=== PATIENT | male | born 1955 | race African-American/Black ===

== ENCOUNTER 2017-01-02 05:55 | Inpatient (IN) ==
[2016-12-28 11:20] LABS: Basophils % 0.4 % (0.0-0.8); Eosinophils # 0.1 10*3/uL (0.0-0.87); Eosinophils % 2.8 % (0.00-10.9); Hematocrit 34.6 VOL% (42.0-52.0); Lymphocytes # 1.3 10*3/uL (1.4-4.0); Lymphocytes % 25.7 % (21.2-54.2); Mean Corpuscular HGB Conc 34.7 GM/DL (32-36); Mean Corpuscular Hemoglobin 31 PG (27-34); Mean Corpuscular Volume 89.2 FL (87-102); Monocytes # 0.4 10*3/uL (0.11-0.8); Monocytes % 8.3 % (1.7-12.7); Neutrophils # 3.2 10*3/uL (1.4-7.4); Neutrophils % 62.8 % (38.7-73.9); Platelet Count 187 T/CUMM (130-400); Red Blood Count 3.88 MC/CUMM (3.8-5.5); Red Cell Distribution Width 14.3 % (9.3-17.3); White Blood Count 5.1 T/CUMM (4-12)
[2016-12-28 11:34] LABS: Apearance,Urine CLEAR (Clear); Bilirubin,Urine Negative (Negative); Blood, Urine Negative (Negative); Glucose,Urine (UA) Negative (Negative); Ketones,Urine Negative (Negative); Mucus,Urine Occasional /LPF (Occasional); Nitrite,Urine Negative (Negative); Protein,Urine Negative; RBC,Urine 1 /HPF (0-4); Squamous Epithelial Cell,Urine Occasional /HPF (0-10); Urine Color Yellow (Yellow); Urine Specific Gravity 1.017 (1.001-1.035); Urine Urobilinogen < 2.0 EU/DL (0.2-1.0); WBC,Urine 1 /HPF (0-6)
--- NOTE | 2016-12-28 11:52 | EKG Report ---
Stationary ECG Study [facility] Test Date: 12/28/2016 11:51:05 AM Pat Name: PRISCILLA HARDIN Department: Room: Gender: M Call Center Trainer: BRANDEE EID [birth year] : 1955 Requested by: Moreno Eid Order Number: [id number] Reading MD: JERMAINE RANDLE Intervals [place] Rate: 56 P: 62 [place]: 204 QRS: 44 QRSD: 101 T: -15 QT: 401 QTc: 392 Interpretive Statements SINUS RHYTHM VOLTAGE CRITERIA FOR LVH NONSPECIFIC T-WAVE ABNORMALITY Electronically Signed On 12-28-16 22:09:44 CDT by JERMAINE RANDLE [email or web address]
[2016-12-28 11:58] LABS: Calcium 9.2 MG/DL (8.5-10.1); Osmolality,Calculated 288.3 MOS/KG (273-304); Potassium 3.9 MMOL/L (3.5-5.1)
[~2017-01-02 05:55] MED LIST: ALVIMOPAN 12 MG CAPSULE ONE; FAMOTIDINE 20 MG TABLET PO ONE; LORazepam 1 MG TABLET PO ONE; SODIUM CHLORIDE 0.9% 100 ML IV ONE; SODIUM PHOSPHATE ENEMA 133 ML BOTTLE RECTAL ONE; cefTRIAXone 1,000 MG VIAL ONE
[2017-01-02] MEDS ORDERED: ALVIMOPAN 12 MG CAPSULE PO ONE (06:00)
[2017-01-02] MEDS ORDERED: SODIUM PHOSPHATE ENEMA 133 ML BOTTLE RECTAL ONE (06:00)
[2017-01-02] MEDS ORDERED: FAMOTIDINE 20 MG TABLET ONE (06:38)
[2017-01-02] MEDS ORDERED: LORazepam 1 MG TABLET ONE (06:38)
[2017-01-02] MEDS ORDERED: DEXAMETHASONE 10 MG/1 ML VIAL ONE (07:15)
[2017-01-02] MEDS ORDERED: LIDOCAINE 2% 5 ML VIAL ONE (07:15)
[2017-01-02] MEDS ORDERED: PROPOFOL 200 MG/20 ML VIAL IV ONE (07:15)
[2017-01-02] MEDS ORDERED: PHENYLEPHRINE 1 MG/10 ML SYRINGE IV ONE (07:15)
[2017-01-02] MEDS ORDERED: GLYCOPYRROLATE 0.4 MG/2 ML VIAL ONE (07:15)
[2017-01-02] MEDS ORDERED: ROCURONIUM 100 MG/10 ML VIAL IV ONE (07:15)
[2017-01-02] MEDS ORDERED: ONDANSETRON 4 MG/2 ML VIAL ONE ×2 (07:15→12:24)
[2017-01-02] MEDS ORDERED: LACTATED RINGERS 1,000 ML IV SCH (07:30)
[2017-01-02 08:18] LABS: Apearance,Urine CLEAR (Clear); Bilirubin,Urine Negative (Negative); Blood, Urine Negative (Negative); Glucose,Urine (UA) Negative (Negative); Hyaline Casts,Urine 1 /LPF (0-3); Ketones,Urine Negative (Negative); Mucus,Urine Occasional /LPF (Occasional); Nitrite,Urine Negative (Negative); Protein,Urine Negative; RBC,Urine 2 /HPF (0-4); Squamous Epithelial Cell,Urine Occasional /HPF (0-10); Urine Color Yellow (Yellow); Urine Specific Gravity 1.015 (1.001-1.035); Urine Urobilinogen < 2.0 EU/DL (0.2-1.0); WBC,Urine 2 /HPF (0-6)
[2017-01-02] MEDS ORDERED: diphenhydrAMINE 50 MG/1 ML VIAL IV PRN (11:21)
[2017-01-02] MEDS ORDERED: LACTULOSE 20 GM/30 ML UDCUP PO PRN (11:21)
[2017-01-02] MEDS ORDERED: HYDROmorphone PCA 30 MG/30 ML SYRINGE IV SCH (11:30)
[2017-01-02] MEDS ORDERED: SEVOFLURANE 1 UNIT/15 MINUTE INH ONE (11:37)
--- NOTE | 2017-01-02 11:37 | Operative Note ---
Date of procedure: 01/02/17 Pre-op diagnosis: Prostate cancer Post-op diagnosis: same Procedure: 61-year-old black male with localized carcinoma the prostate. He is got [place] 7 along the right side of his prostate. He is like to undergo robotic prostatectomy. The procedure of robotic assisted laparoscopic radical prostatectomy was explained at length and in detail. Risks, complications, outcomes, sequelae, prognosis and alternative therapy was thoroughly discussed. Patient understood this and agreed to proceed. Patient is brought to the operative suite placed on the table on the securing pad in the appropriate position and given a general endotracheal anesthetic. He then placed in low stirrups and secured to the table. He is then prepared and draped in usual sterile manner. 22 Nepali Velasco was inserted and left to gravity drainage. Patient was then placed in Trendelenburg position. Formal timeout performed. Initially I began on the patient's left-hand side with a #1 [employer] is. A small incision created and this was then carried down to the fascia. Veress needle was passed into the peritoneal cavity and confirmed with the to click and saline drop test. Pneumoperitoneum was obtained. 8 mm trocar was then placed. A camera was then inserted in the abdominal cavity and the contents are examined. My concern starting laterally was because of the umbilicus because he has a small hernia. But there is no bowel attached to that. There is some adhesions of the left colon to the sidewall but otherwise the abdomen is clean. Incision is created over the umbilicus and another 8 mm trochars placed. 8 cm from that laterally to the right side and then 8 cm from that even further lateral to the right side the second third and fourth arm ports are placed. These are done under direct vision. And assistance port is placed between #1 and #2 arm about 4 inches above and this is 12 mm. This was placed under direct vision. The robot is then docked. I came to the console. [place] bipolar forceps in the left hand and monopolar scissors in the right we began a posterior approach. Incision was created in the anterior cul-de-sac dissected down the vas deferens which were then clipped and divided. Seminal vesicles were dissected out of the bed. Care was taken to use minimal cautery as this is a nerve sparing. Window in Denonvilliers's is then created. Attention was then directed to creating the bladder flap. Incision is created lateral to the median umbilical ligaments K down the internal ring on both sides. Median umbilical ligaments are cauterized and the divided and the bladder flaps created. Endopelvic fascia is incised bilaterally then the puboprostatics were incised. There was a lot of small vessels that were penetrating from the levators and I left him to coagulate bleeders this is a nerve sparing. #1 Vicryl was then used to ligate the dorsal venous complex. The junction of the prostate and bladder was ascertained with the Velasco catheter and bunching of the tissue in the midline. This is then incised initially with cautery and dissection was continued down to the prostate. This bladder neck is somewhat enlarged because the patient's had a previous TUR. The posterior bladder neck was then incised. The ureteral orifices were visualized and the resecting area was well away from them. The fourth arm was used to grasp the posterior prostate lifting it up. Dissection continued posteriorly to cul-de-sac where the seminal vesicles and vasa were pulled up. The posterior lateral pedicles were incrementally taken down and control with Weck clips and then divided. Bilateral lateral prostatic fascia was incised and the nerves were dissected off the prostate on both sides. Remaining pedicles were taken down and isolated and then clipped and then divided. Prostate was lifted up and the plane between the rectum and the prostate was divided. There was some small vessels that had to be cauterized with bipolar cautery. Attention was directed bladder neck. Dorsal venous complex was incised. Dissection was continued down to the urethra or at the apex the tissue between the urethra and the nerve bundle was then and the nerve was then dissected off on both sides. Anterior urethra was then divided and the Velasco catheter was pulled back the posterior urethra was divided. Remainder small attachments were sharply removed and the prostate with seminal vesicles were then placed in a specimen bag. Bilateral node dissection was then performed. The adventitia the external iliac vein was entered and the henry tissue swept in the obturator fossa. The obturator nerve was identified kept in view at all times and not injured. These nodes were sent for pathologic examination both sides. There was no significant bleeding. The anastomosis was then performed. Using the fourth arm to support the bladder in the pelvis a 2-0 Vicryl was used to approximate the posterior urethral plate to the posterior bladder neck. 3 oh fashion adviser was then used beginning outside in at 6 o'clock position on both sides of the urethra and the bladder neck. This was then a running anastomosis from the 5:00 to 1:00 and 7:00 11:00 positions. Prior to tying the anastomotic suture and new 22 Nepali all silicone Velasco was inserted and 12 cc were placed in the balloon. The anastomotic suture was cinched up and tied tightly. The bladder was filled up with 150 cc of saline and there was no extravasation. This was a watertight anastomosis. The robot was undocked. The patient was laying flat in supine. Ports were removed. The assistance port was enlarged with a scalpel and carried down through the muscles with cautery. Specimen bag was pulled out the contained the prostate and seminal vesicles. Hemostasis was then provided by the cautery and this wound was closed with 0 running Monocryl. All wounds were irrigated and drained and again hemostasis checked in all wounds. The skin on all wounds were closed with skin clips. Sterile dressings were placed on the wound. The catheter was left to gravity drainage and secured the upper thigh. Patient was then awakened general anesthesia having tolerated procedure extremely well and was sent to the recovery room in stable condition. All sponge, instrument and needles counts were correct 2. Implants: 22 Nepali Velasco catheter Anesthesia: EMMETT Surgeon / Physician: Moreno Eid Estimated blood loss: other (250cc) Specimens: other (Prostate with seminal vesicles, bilateral obturator nodes) Condition: stable Disposition: PACU Results - Labs CBC & BMP: 12/28/16 11:13 12/28/16 11:13 Discharge Plan - Discharge Medications No Action Carvedilol 25 mg PO BID NIFEdipine [Adalat cc] 90 mg PO DAILY Omeprazole 20 mg PO BID Tramadol HCl [Ultram] 50 mg PO BID Aspirin [Ecotrin] 1 tablet PO DAILY hydrALAZINE TAB [Apresoline Tab] 50 mg PO BID Valsartan [Diovan] 160 mg PO DAILY Isosorbide Mononitrate [Imdur] 1 tablet PO DAILY - Follow Up or Referral - Forms/Instructions
[2017-01-02] MEDS ORDERED: LACTATED RINGERS 1,000 ML IV ONE (11:38)
[2017-01-02] MEDS ORDERED: SUFentanil 50 MCG/ML AMP ONE (11:38)
[2017-01-02] MEDS ORDERED: ePHEDrine 50 MG/ML AMP ONE (11:38)
--- NOTE | 2017-01-02 12:14 | Anesthesia Post-Op ---
Anesthesia Post OP - Post Ansesthetic Evaluation Patient seen in post op: Yes Resp: within normal limits CV: within normal limits Mental: within normal limits Temp: within normal limits [id number]: within normal limits Nausea and Vomiting: within normal limits Pain: within normal limits
[2017-01-02] MEDS ORDERED: HYDROmorphone 2 MG/1 ML VIAL ONE (12:23)
[2017-01-02] MEDS: HYDROmorphone 2 MG/1 ML VIAL IV PRN ×4 (12:25→12:40)
[2017-01-02] MEDS ORDERED: ONDANSETRON 4 MG/2 ML VIAL IV PRN (12:28)
--- NOTE | 2017-01-02 12:35 | Urology Progress Note ---
Urology - PN: Subj Interval history: Postoperative check. Patient is sleepy but arousable. Urine is blood-tinged. Vital signs are stable. Patient is stable Exam - Constitutional Vitals: Period Temp Pulse Resp BP Sys/Miranda Pulse Ox Last 24 Hr 97.0 F-98.0 F 56-70 12-20 107-172/59-85 98-100 Results - Labs CBC & BMP: 12/28/16 11:13 12/28/16 11:13
[2017-01-02] MEDS: DEXTROSE 5% NACL 0.45% 1,000 ML IV SCH ×2 (13:49→20:52)
[2017-01-02] MEDS: ONDANSETRON 4 MG/2 ML VIAL IV PRN (18:30)
[2017-01-02] MEDS: PANTOPRAZOLE 40 MG TABLET PO SCH (20:29)
[2017-01-02] MEDS: CARVEDILOL 25 MG TABLET PO SCH (20:29)
[2017-01-02] MEDS: ALVIMOPAN 12 MG CAPSULE PO SCH (20:30)
[2017-01-03] MEDS: DEXTROSE 5% NACL 0.45% 1,000 ML IV SCH ×2 (00:29→11:01)
[2017-01-03 04:41] LABS: Hematocrit 32.6 VOL% (42.0-52.0); Hemoglobin 11.1 GM/DL (14.0-18.0); Immature Granulocytes % 0.4 %; Immature Granulocytes Absolute 0.04 #; Lymphocytes % 9.6 % (21.2-54.2); Mean Corpuscular Hemoglobin 31 PG (27-34); Mean Corpuscular Volume 90.3 FL (87-102); Mean Platelet Volume 10.8 FL (9.6-12.0); Monocytes # 0.9 10*3/uL (0.11-0.8); Monocytes % 8.4 % (1.7-12.7); Neutrophils # 8.5 10*3/uL (1.4-7.4); Neutrophils % 81.6 % (38.7-73.9); Platelet Count 186 T/CUMM (130-400); Red Blood Count 3.61 MC/CUMM (3.8-5.5); Red Cell Distribution Width 14.4 % (9.3-17.3); White Blood Count 10.4 T/CUMM (4-12)
[2017-01-03 05:12] LABS: Osmolality,Calculated 282.5 MOS/KG (273-304); Potassium 4.2 MMOL/L (3.5-5.1)
[2017-01-03] MEDS ORDERED: oxyCODONE/ACETAMINOPHEN 5-325 MG TABLET PO PRN (07:34)
--- NOTE | 2017-01-03 07:38 | Urology Progress Note ---
Urology - PN: Subj Interval history: Postop day 1. Patient is alert and awake. Abdomen is soft. Urine is clear. H &H is stable. Creatinine is stable electrolytes are normal. He had some nausea last night but it is improved. 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 Exam - Constitutional Vitals: Period Temp Pulse Resp BP Sys/Miranda Pulse Ox Last 24 Hr 97.0 F-98.4 F 56-74 12-20 107-172/59-98 95-100 Results - Labs CBC & BMP: 01/03/17 03:34 01/03/17 03:34
[2017-01-03] MEDS: SOLIFENACIN 5 MG TABLET PO SCH (09:41)
[2017-01-03] MEDS: ALVIMOPAN 12 MG CAPSULE PO SCH ×2 (09:41→21:14)
[2017-01-03] MEDS: LACTULOSE 20 GM/30 ML UDCUP PO SCH ×2 (09:41→21:13)
[2017-01-03] MEDS: VALSARTAN 160 MG TABLET PO SCH (09:41)
[2017-01-03] MEDS: CARVEDILOL 25 MG TABLET PO SCH ×2 (09:41→21:14)
[2017-01-03] MEDS: PANTOPRAZOLE 40 MG TABLET PO SCH ×2 (09:41→21:14)
[2017-01-03] MEDS: ISOSORBIDE MONONITRATE 60 MG TABLET PO SCH (09:42)
[2017-01-03] MEDS: ONDANSETRON 4 MG/2 ML VIAL IV PRN (11:40)
[2017-01-03] MEDS: oxyCODONE/ACETAMINOPHEN 5-325 MG TABLET PO PRN (18:06)
[2017-01-04] MEDS: oxyCODONE/ACETAMINOPHEN 5-325 MG TABLET PO PRN (04:18)
[2017-01-04 07:35] VITALS: BP 129/77
[2017-01-04] MEDS: CARVEDILOL 25 MG TABLET PO SCH (08:05)
[2017-01-04] MEDS: LACTULOSE 20 GM/30 ML UDCUP PO SCH (08:05)
[2017-01-04] MEDS: PANTOPRAZOLE 40 MG TABLET PO SCH (08:05)
[2017-01-04] MEDS: ISOSORBIDE MONONITRATE 60 MG TABLET PO SCH (08:05)
[2017-01-04] MEDS: VALSARTAN 160 MG TABLET PO SCH (08:05)
[2017-01-04] MEDS: SOLIFENACIN 5 MG TABLET PO SCH (08:05)
[2017-01-04] MEDS: ALVIMOPAN 12 MG CAPSULE PO SCH (08:05)
--- NOTE | 2017-01-04 09:18 | Discharge Summary ---
Hospital Course - Hospital Course Hospital Course: 61-year-old gentleman intermediate risk carcinoma prostate underwent a robotic prostatectomy. Postoperatively is done well his H&H is stable. His creatinine is stable electrolytes were normal. Urine is clear. He is tolerating regular diet he has had a bowel movement. His wounds are healing well. We will discharge him to follow-up in the office with me in 2 weeks. He will see my nurse in about 910 days to have the catheter removed. Activity level and postoperative care has been explained. He will be sent home on Percocet 5 mg, # 20, one every 4-6 hours as needed pain. Vesicare 5 mg #9, 1 p.o. daily. - Time spent with patient Time with patient DS: Greater than 30 minutes Diagnosis - Discharge Diagnosis (1) Prostate cancer Status: Acute Discharge Plan - Discharge Data Disposition: Disch To Home/Self Care Condition at Discharge: Stable Discharge Diet: advance to your usual diet Activity: no lifting, other (Walking on flat ground is encouraged, no driving or riding) Hygiene: no restrictions Weight Bearing at Discharge: full weight bearing Driving: not until seen by doctor Contact your physician if you experience:: fever over 101, Bleeding, pain uncontrolled by pain medications - Discharge Medications New oxyCODONE/ACETAMINOPHEN 5-325 [Percocet 5-325] 1 tablet PO Q4H PRN tablet PRN Reason: Pain Moderate (4-7) Solifenacin [Vesicare] 5 mg PO DAILY tablet oxyCODONE/ACETAMINOPHEN 5-325 [Percocet 5-325] 2 tablet PO Q4H PRN tablet PRN Reason: Pain Moderate (4-7) Continue Carvedilol 25 mg PO BID NIFEdipine [Adalat cc] 90 mg PO DAILY Omeprazole 20 mg PO BID hydrALAZINE TAB [Apresoline Tab] 50 mg PO BID Valsartan [Diovan] 160 mg PO DAILY Isosorbide Mononitrate [Imdur] 1 tablet PO DAILY Discontinued Tramadol HCl [Ultram] 50 mg PO BID Aspirin [Ecotrin] 1 tablet PO DAILY - Follow Up or Referral - Forms/Instructions Exam - Constitutional Vitals: Period Temp Pulse Resp BP Sys/Miranda Pulse Ox Last 24 Hr 98.6 F-99.5 F 63-72 16-20 129-176/73-82 95-98 DS: Provider Date of admission: 01/03/17 05:55 Primary care physician: . No PCP Attending physician on admission: Moreno Eid MD Discharging clinician: Moreno Eid MD
== END 2017-01-04 11:30 | disposition home or self-care (01) | DRG 708 ==
LOC: EDBD → N.OR 05:55 → N.SDSINP 06:07 → EDSTATUS 07:30 → N.5E 13:27 → N.SDSINP 01-03 05:55 → N.5E 01-03 13:27
PROVIDERS: ADMIT Urology; ATTEND Urology